=== PATIENT | male | born 1995 | race Caucasian/White ===

== ENCOUNTER 2023-11-17 04:51 | Emergency (ER) | payer OTHER, SELFPAY ==
[2023-11-17 04:55] VITALS: BP 129/79; PULSE 98; RESP 18; TEMP 36.5; O2SAT 99; BMI 33.1
--- NOTE | 2023-11-17 05:11 | ED.GENADUL1 ---
HPI - General Adult General Chief complaint: Abdominal Pain Stated complaint: belly button bleeding Time Seen by Provider: 11/17/23 04:59 Source: patient Mode of arrival: walk-in Limitations: no limitations History of Present Illness HPI narrative: Patient scratched his belly button while cleaning it and it started to bleed 2 days ago. He has picked at it and now he is having redness, pain and clear drainage. he is concerned it might be infected. He has not applied any topical antibiotic ointment to the area. Related Data Home Medications Medication Instructions Recorded Confirmed levetiracetam 500 mg tablet 500 mg PO DAILY 11/17/23 11/17/23 Previous Rx's Medication Instructions Recorded doxycycline hyclate 100 mg capsule 100 mg PO BID 7 days #14 caps 11/17/23 Allergies Allergy/AdvReac Type Severity Reaction Status Date / Time No Known Drug Allergies Allergy Verified 11/17/23 04:58 PFSH PFS Social History Smoking status: Never smoker Exam Narrative Exam Narrative: Nurses notes and vital signs reviewed and patient is not hypoxic. afebrile General: Well-appearing and in no apparent distress. Skin: Warm, dry, no pallor noted. Cardiovascular: Normal peripheral perfusion Respiratory: No accessory muscle use or respiratory distress. GI: Abdomen is soft, non-distended. Normal bowel sounds. Umbilicus is erythematous with weeping of clear fluid and associated tenderness to palpation. No rebound, guarding, or rigidity noted. No abscess. Neurological: A&O x4. No cranial nerve dysfunction observed. No truncal ataxia. Moves all extremities. Sensation intact. Psychiatric: Cooperative and interactive. Normal mood and affect. Constitutional Vital Signs, click to edit/add: Last Vital Signs Temp 97.7 F 11/17/23 04:55 Pulse 98 H 11/17/23 04:55 Resp 18 11/17/23 04:55 BP 129/79 11/17/23 04:55 Pulse Ox 99 11/17/23 04:55 O2 Del Method Room Air 11/17/23 04:55 Course Vital Signs Vital signs: Vital Signs Temperature 97.7 F 11/17/23 04:55 Pulse Rate 98 H 11/17/23 04:55 Respiratory Rate 18 11/17/23 04:55 Blood Pressure 129/79 11/17/23 04:55 Pulse Oximetry 99 11/17/23 04:55 Oxygen Delivery Method Room Air 11/17/23 04:55 Temperature 97.7 F 11/17/23 04:55 Pulse Rate 98 H 11/17/23 04:55 Respiratory Rate 18 11/17/23 04:55 Blood Pressure 129/79 11/17/23 04:55 Pulse Oximetry 99 11/17/23 04:55 Oxygen Delivery Method Room Air 11/17/23 04:55 Medical Decision Making MDM Narrative Medical decision making narrative: Patient instructed to apply topical antibiotic ointment to the area and was discharged home with a prescription for oral antibiotics - doxycycline. PCP follow up recommended. Discharge Plan Discharge Chief Complaint: Abdominal Pain Clinical Impression: Cellulitis of umbilicus Patient Disposition: Home, Self-Care Time of Disposition Decision: 05:15 Prescriptions / Home Meds: New doxycycline hyclate 100 mg capsule 100 mg PO BID 7 Days Qty: 14 0RF No Action levetiracetam 500 mg tablet 500 mg PO DAILY Instructions: Cellulitis (ED) Stand Alone Forms: Portal Instructions Referrals: Physician,Non-Staff, MD [Primary Care Provider] - 1 week
== END 2023-11-17 05:21 | disposition home or self-care (01) ==
PROVIDERS: Emergency Provider Emergency Medicine
DX: L03.316 Cellulitis of umbilicus (principal); Z79.899 Other long term (current) drug therapy
CPT/HCPCS: 99283